=== PATIENT | female | born 1950 | race Caucasian/White ===

== ENCOUNTER → 2017-10-05 | Outpatient (CLI) | payer OTHER, SELFPAY ==
[~2017-10-05] MED LIST: COLACE100 MG PO; NOHOMEMEDICATIONS; PERCOCET 7.5-31 EACH PO; ULTRAM 50MG TAB50 MG PO
== END ==
LOC: M.RAD 12:26
DX: Z12.31 Encounter for screening mammogram for malignant neoplasm of breast (principal)

== ENCOUNTER → 2017-10-08 | Outpatient (CLI) | payer OTHER, SELFPAY | LOC: M.RAD 10-05 15:02 → M.ULTRA 10:21 | DX: Z13.6 Encounter for screening for cardiovascular disorders (principal); N60.01 Solitary cyst of right breast; M85.88 Other specified disorders of bone density and structure, other site; Z78.0 Asymptomatic menopausal state ==

== ENCOUNTER 2017-10-19 09:03 | Inpatient (IN) | payer OTHER, SELFPAY ==
[~2017-10-19] VITALS: Ht 154.9 cm; Wt 80.3 kg
[2017-10-19 09:13] VITALS: BP 120/78
[2017-10-19 09:29] LABS: HEMATOCRIT 54.1 % (37.0-47.0); HEMOGLOBIN 18.1 gm/dL (12.0-15.0); MCH 28.4 pg (26.0-34.0); MCHC 33.4 g/dL (28.0-37.0); MCV 84.9 fL (80.0-100.0); MPV 8.5 fl. (7.2-11.1); NUCLEATED RBCS 0 /100WBC; PLATELET COUNT* 389 thou/uL (150-400); RBC 6.38 mil/uL (4.20-5.00); RDW-CV 14.3 % (10.5-14.5); WBC 23.7 thou/uL (4.0-11.0)
[2017-10-19 09:35] LABS: CALCIUM 10.6 mg/dL (8.5-10.1); POTASSIUM 4.1 mmol/L (3.5-5.1)
[2017-10-19 09:40] LABS: TOTAL BILIRUBIN 0.5 mg/dL (<0.1-1.0); TOTAL PROTEIN 8.5 g/dL (6.4-8.2)
[2017-10-19 09:57] LABS: ABSOLUTE LYMPHOCYTES 4.7 thou/uL (0.8-5.3); ABSOLUTE MONOCYTES 0.9 thou/uL (0.0-1.2)
[2017-10-19 09:58] LABS: PLATELET ESTIMATE ADEQUATE
[2017-10-19 11:02] LABS: APTT 22.6 Seconds (25.0-31.3); PROTIME 9.9 Seconds (9.20-11.50)
[2017-10-19 11:30] LABS: URINE BILIRUBIN NEGATIVE (Negative); URINE BLOOD NEGATIVE (Negative); URINE CLARITY CLEAR; URINE COLOR YELLOW; URINE GLUCOSE-RANDOM NEGATIVE (Negative); URINE KETONES NEGATIVE (Negative); URINE LEUKOCYTES NEGATIVE (Negative); URINE NITRITE NEGATIVE (Negative); URINE PROTEIN TRACE (Negative); URINE SPECIFIC GRAVITY <= 1.005 (1.005-1.030); URINE UROBILINOGEN 0.2 E.U./dl (0.2-1.0)
[2017-10-19 12:10] VITALS: BP 136/72
[2017-10-19 16:00] VITALS: BP 140/62
[2017-10-19 16:30] LABS: URIC ACID* 4.3 mg/dL (2.6-7.2)
--- NOTE | 2017-10-19 18:44 | EKG ---
[place] [address] ELECTROCARDIOGRAM REPORT Name: ANGIE ANDRADE Room: [address] [facility]M [facility]#: [id number] Admission: 10/19/17 Attend Phys: Desiree Brady Discharge: Date of : 52 Report #: [id number] THIS REPORT FOR: //name// [facility] ED Test Date: 2017-10-19 Test Time: 11:01:27 Pat Name: ANGIE ANDRADE Department: Room: [place] [address] Gender: F Java Software: JANNETTE Pearl : 1950 Requested By: Severino Beauchamp Order Number: [id number] MD: Dat Alicea Measurements Intervals Malcolm Rate: 79 P: 9 MT: 145 QRS: -23 QRSD: 96 T: 20 QT: 387 QTc: 444 Interpretive Statements Sinus rhythm Borderline left axis deviation RSR' in V1 or V2, right VCD or RVH No previous ECG available for comparison Electronically Signed On 10-19-2017 18:44:28 CDT by Dat Alicea [email or web address] <ELECTRONICALLY SIGNED> By: Dat Alicea MD, FACC 10/19/17 1844 1101 1101 Dat Alicea MD, [facility] /EPI
[2017-10-19 20:00] VITALS: BP 142/70
[2017-10-20 04:05] LABS: ABSOLUTE EOSINOPHILS 0.1 thou/uL (0.0-0.7); ABSOLUTE LYMPHOCYTES 1.9 thou/uL (0.8-5.3); ABSOLUTE MONOCYTES 1.1 thou/uL (0.0-1.2); ABSOLUTE NEUTROPHILS 7.3 thou/uL (1.6-8.1); BASOPHILS 0.4 %; EOSINOPHILS 1.1 %; LYMPHOCYTES 18.2 %; MCH 28.1 pg (26.0-34.0); MCHC 32.9 g/dL (28.0-37.0); MCV 85.3 fL (80.0-100.0); MONOCYTES 10.2 %; MPV 8.5 fl. (7.2-11.1); NUCLEATED RBCS 0 /100WBC; POLYS 70.1 %; RBC 5.27 mil/uL (4.20-5.00); RDW-CV 14.3 % (10.5-14.5); WBC 10.3 thou/uL (4.0-11.0)
[2017-10-20 04:34] LABS: CALCIUM 8.8 mg/dL (8.5-10.1); CREATININE 0.7 mg/dL (0.6-1.3); HEMOGLOBIN 14.8 gm/dL (12.0-15.0); MAGNESIUM 2.1 mg/dL (1.8-2.4); PHOSPHORUS* 3.6 mg/dL (2.5-4.9); PLATELET COUNT* 289 thou/uL (150-400); POTASSIUM 4.8 mmol/L (3.5-5.1)
[2017-10-20 08:15] VITALS: BP 135/66
[2017-10-20 15:48] VITALS: BP 133/63
--- NOTE | 2017-10-20 17:18 | 2DMMODE ---
[place] [address] 2 D/M-MODE ECHOCARDIOGRAM Name: ANGIE ANDRADE Room: [address] IN [facility]#: [id number] Admission: 10/19/17 Attend Phys: Danita Erickson Discharge: Date of : 52 Date of Service: 10/20/17 1718 Report #: [id number] THIS REPORT FOR: //name// APPROVED REPORT Study performed: 10/20/2017 13:13:57 EXAM: Comprehensive 2D, Doppler, and color-flow Echocardiogram Patient Location: In-Patient Room #: [facility] Status: routine BSA: 1.79 HR: 61 bpm BP: 135/66 mmHg Rhythm: NSR Other Information Study Quality: Good Indications Pre-Op 2D Dimensions LVEF(%): 79.15 (>50%) IVSd: 10.85 (7-11mm) LVOT Diam: 19.14 (18-24mm) LVDd: 36.91 mm PWd: 9.10 (7-11mm) Ascending Ao: 35.36 (22-36mm) LVDs: 19.57 (25-40mm) Aortic Root: 33.83 mm Foy's LVEF: 79.15 % Volumes Left Atrial Volume (Systole) LA ESV Index: 20.10 mL/m2 Aortic Valve AoV Peak Toy.: 1.27 m/s AO Peak Gr.: 6.46 mmHg LVOT Max P.24 mmHg AO Mean Gr.: 3.33 mmHg LVOT Mean P.74 mmHg LVOT Max V: 1.25 m/s AO V2 VTI: 25.48 cm LVOT Mean V: 0.74 m/s ALTAGRACIA (VTI): 3.57 cm2 LVOT V1 VTI: 31.62 cm Mitral Valve E/A Ratio: 1.12 [place] [address] 2 D/M-MODE ECHOCARDIOGRAM Name: ANGIE ANDRADE Room: [address] IN .R.#: [id number] Admission: 10/19/17 Attend Phys: Danita Erickson Discharge: Date of : 52 Date of Service: 10/20/17 1718 Report #: [id number] MV Decel. Time: 194.76 ms MV E Max Toy.: 1.05 m/s MV PHT: 56.48 ms MVA (PHT): 3.90 cm2 TDI E/Lateral E': 8.75 E/Medial E': 10.50 Medial E' Toy.: 0.10 m/s Lateral E' Toy.: 0.12 m/s Pulmonary Valve PV Peak Toy.: 0.85 m/s PV Peak Gr.: 2.91 mmHg Tricuspid Valve TR Peak Gr.: 18.51 mmHg RVSP: 23.00 mmHg Left Ventricle The left ventricle is normal size. There is normal LV segmental wall motion. Mild to moderate concentric left ventricular hypertrophy. Left ventricular systolic function is normal. The left ventricular ejection fraction is within the normal range. LVEF is 60-65%. Grade II - pseudonormal filling dynamics. Right Ventricle The right ventricle is normal size. The right ventricular systolic function is normal. Atria The left atrium size is normal. The right atrium size is normal. Aortic Valve The aortic valve is normal in structure. No aortic regurgitation is present. There is no aortic valvular stenosis. Mitral Valve The mitral valve is normal in structure. There is no mitral valve regurgitation noted. No evidence of mitral valve stenosis. Tricuspid Valve The tricuspid valve is normal in structure. Trace tricuspid regurgitation. The RVSP is ____23___ mmHg. Pulmonic Valve The pulmonary valve is normal in structure. There is no pulmonic [place]vular [place] [address] 2 D/M-MODE ECHOCARDIOGRAM Name: ANGIE ANDRADE Room: [address] IN M.R.#: [id number] Admission: 10/19/17 Attend Phys: Danita Erickson Discharge: Date of : 52 Date of Service: 10/20/17 1718 Report #: [id number] Great Vessels The aortic root is normal in size. IVC is normal in size and collapses with >50% inspiration Pericardium There is no pericardial effusion. <Conclusion> LVEF is 60-65%. There is normal LV segmental wall motion. No aortic regurgitation is present. There is no aortic valvular stenosis. There is no mitral valve regurgitation noted. No evidence of mitral valve stenosis. Mild to moderate concentric left ventricular hypertrophy. Grade II - pseudonormal filling dynamics. <ELECTRONICALLY SIGNED> By: Tico España MD, FACC 10/20/171717 17 17 Tico España MD, FACC /INF
[2017-10-21 00:10] VITALS: BP 147/70
[2017-10-21 07:44] VITALS: BP 136/72
[2017-10-21 15:59] VITALS: BP 133/74
[2017-10-21 20:05] VITALS: BP 138/95
[2017-10-22 08:00] VITALS: BP 128/76
[2017-10-22 08:05] LABS: ABSOLUTE BASOPHILS 0.1 thou/uL (0.0-0.2); ABSOLUTE LYMPHOCYTES 1.6 thou/uL (0.8-5.3); ABSOLUTE MONOCYTES 0.7 thou/uL (0.0-1.2); ABSOLUTE NEUTROPHILS 8.1 thou/uL (1.6-8.1); BASOPHILS 0.6 %; EOSINOPHILS 0.4 %; HEMATOCRIT 41.8 % (37.0-47.0); MCH 28.3 pg (26.0-34.0); MCHC 33.4 g/dL (28.0-37.0); MCV 84.7 fL (80.0-100.0); MONOCYTES 6.3 %; MPV 8.6 fl. (7.2-11.1); NUCLEATED RBCS 0 /100WBC; PLATELET COUNT* 235 thou/uL (150-400); POLYS 77.7 %; RBC 4.93 mil/uL (4.20-5.00); RDW-CV 13.4 % (10.5-14.5); WBC 10.4 thou/uL (4.0-11.0)
[2017-10-22 08:20] LABS: CALCIUM 8.6 mg/dL (8.5-10.1); CREATININE 0.5 mg/dL (0.6-1.3); MAGNESIUM 1.9 mg/dL (1.8-2.4); POTASSIUM 3.5 mmol/L (3.5-5.1)
[2017-10-22 11:59] VITALS: BP 128/76
[2017-10-22 12:23] VITALS: BP 141/81
--- NOTE | 2017-10-22 17:18 | OP ---
[address] [address] OPERATIVE REPORT Name: ANGIE ANDRADE Room: [address] IN M.R.#: [id number] Admission: 10/19/17 Attend Phys: Desiree Brady Discharge: Date of : 52 Report #: [id number] THIS REPORT FOR: //name// CC: Danita Saab DO DICTATED BY: Twila Garcia DO DATE OF SERVICE: 10/22/2017 PREOPERATIVE DIAGNOSIS: Small-bowel obstruction secondary mass. POSTOPERATIVE DIAGNOSIS: Ileocolic mass and small bowel mass, pending final pathology. SURGEON: Twila Garcia DO, PGY5. SUPERVISING SURGEON: Blade Hamilton DO GAMES MANAGER: Pato Ignacio, PGY1 and MAURO Longo student. PROCEDURE: Laparoscopy converted to exploratory laparotomy, right hemicolectomy with ileocolic anastomosis and small bowel resection, partial omentectomy. ANESTHESIA: General endotracheal. ESTIMATED BLOOD LOSS: 50 mL. SPECIMENS: Right colon, small bowel and omentum. COMPLICATIONS: None. DISPOSITION: PACU to med/surg. OPERATIVE DETAILS: After obtaining proper informed consent, the patient was brought to the operating room and laid supine on the operating table. She was given preoperative antibiotics and sedated and intubated under the benefit of general anesthesia. Abdomen was then prepped and draped in the usual sterile fashion and timeout was performed. Supraumbilical incision was made and dissection of subcutaneous tissue was carried out to the level of the fascia and again incision was made in the fascia. This was grasped with 2 Steve clamps and elevated. Fascial incision was extended slightly inferiorly and superiorly and peritoneum was entered bluntly with a hemostat. Finger was placed in abdomen and peritoneum was swept and found to be free of adhesions. A Vygybh-fi-pezzl 0 Vicryl retention sutures were placed [place] [address] OPERATIVE REPORT Name: ANGIE ANDRADE Room: [address] IN ..#: [id number] Admission: 10/19/17 Attend Phys: Desiree Brady Discharge: Date of : 52 Report #: [id number] placed in the abdomen and abdomen was insufflated. Camera was placed in the abdomen and 4 quadrant inspection did not reveal any abnormalities of the peritoneum or gross abnormalities of the liver. We were able to identify mass in the right lateral abdomen. A 5 mm trocar was placed in the left lower quadrant as well as the suprapubic position under direct visualization. Mass was identified in the right lateral abdomen, appeared to be in the terminal ileum. Small bowel was then run proximally. There was a small mesenteric mass in the proximal ileum with some adjacent serosal plaquing also in the proximal ileum, but remainder of small bowel was grossly unremarkable. We then turned our attention back to the mass in the right lower quadrant and this appeared to be terminal ileum and proximal cecum. White line of Toldt was then taken down and retracted medially. There were some omental adhesions; however, because the mass was quite large and difficult to retract, we elected to convert to laparotomy. Supraumbilical incision was extended superiorly as well as around the umbilicus and fascial incision was extended along the length of the incision. We then turned our attention to the transverse colon. There was some adherent omentum, but this was taken down. We then proceeded to take down the hepatic flexure moving around, taking care to avoid the duodenum. Once the hepatic flexure was completely taken down and we were able to fully retract the colon up on its mesentery into the midline incision, we then made our resection margins. An 80 mm blue load TERRY stapler was used to ligate the transverse colon. Mesentery was serially clamped and ligated and moving back towards the cecum, there were some lymph nodes deep in the mesentery and these were ligated. Ileocolic pedicle posteriorly clamped and ligated with the LigaSure device and reinforced with 2-0 silk sutures. Terminal ileum was then divided with an 80 mm TERRY stapler and specimen was sent to pathologist for frozen sections intraoperatively. We then made a iapm-xm-jszt ileocolic anastomosis with an 80 mm blue load TERRY stapler to make the common channel and a 60 TA stapler to close the common enterotomy. Lembert stitches were placed to reinforce our staple line and mesentery was reapproximated with 2-0 Vicryl sutures. We then proceeded proximally on the small bowel where there was the antimesenteric mass in the adjacent serosal plaquing, a short segment. Approximately 15 cm of small bowel was then resected with 55 mm blue load TERRY staplers proximal and distal end. Again mesentery serially clamped and ligated with the LigaSure device. Untj-dd-oyvo anastomosis was created with 60 mm TERRY blue load stapler and common enterotomy was closed with 60 TA stapler. The mesentery again was closed with 2-0 Vicryl and 2-0 Vicryl was used to Lembert stitch to support the staple line. The bowel was then placed back in the abdomen and abdomen was copiously irrigated with warm saline. Fascia was then reapproximated with #1 PDS suture and subcutaneous tissues were reapproximated with 3-0 Vicryl and skin was closed with skin stapler, followed by Telfa dressing and sterile gauze dressings. All counts were correct at the end of the case. Intraoperative consultation with pathology with mass highly suspicious for lymphoma. [place] [address] OPERATIVE REPORT Name: ANGIE ANDRADE Room: [address] IN [facility]#: [id number] Admission: 10/19/17 Attend Phys: Desiree Brady Discharge: Date of : 52 Report #: [id number] Blade Hamilton was present and scrubbed for the entire procedure. <ELECTRONICALLY SIGNED> By: Blade Hamilton DO 10/22/17 1718 1549 1648Amicheal Hamilton DO /nt
[2017-10-22 18:39] VITALS: BP 129/65
[2017-10-22 20:00] VITALS: BP 128/64
[2017-10-23] VITALS: BP 116/59
[2017-10-23 04:00] VITALS: BP 109/53
[2017-10-23 04:57] LABS: HEMATOCRIT 38.4 % (37.0-47.0); HEMOGLOBIN 12.7 gm/dL (12.0-15.0); MCH 28.1 pg (26.0-34.0); MCHC 33.1 g/dL (28.0-37.0); MCV 84.9 fL (80.0-100.0); MPV 8.3 fl. (7.2-11.1); NUCLEATED RBCS 0 /100WBC; PLATELET COUNT* 248 thou/uL (150-400); RBC 4.53 mil/uL (4.20-5.00); RDW-CV 13.7 % (10.5-14.5)
[2017-10-23 05:08] LABS: CREATININE 0.5 mg/dL (0.6-1.3)
[2017-10-23 06:52] LABS: ABSOLUTE LYMPHOCYTES 1.3 thou/uL (0.8-5.3); ABSOLUTE MONOCYTES 1.1 thou/uL (0.0-1.2); ABSOLUTE NEUTROPHILS 13.6 thou/uL (1.6-8.1); ANISOCYTOSIS 1+; PLATELET ESTIMATE ADEQUATE; POIKILOCYTOSIS 1+
[2017-10-23 07:30] VITALS: BP 122/65
[2017-10-23 16:00] VITALS: BP 122/68
[2017-10-23 21:00] VITALS: BP 144/63
[2017-10-24] VITALS: BP 133/76
[2017-10-24 03:58] LABS: ABSOLUTE EOSINOPHILS 0.2 thou/uL (0.0-0.7); ABSOLUTE LYMPHOCYTES 1.1 thou/uL (0.8-5.3); ABSOLUTE MONOCYTES 0.9 thou/uL (0.0-1.2); ABSOLUTE NEUTROPHILS 9.4 thou/uL (1.6-8.1); BASOPHILS 0.3 %; EOSINOPHILS 1.9 %; HEMATOCRIT 38.5 % (37.0-47.0); LYMPHOCYTES 9.2 %; MCH 28.6 pg (26.0-34.0); MCHC 33.8 g/dL (28.0-37.0); MCV 84.6 fL (80.0-100.0); MONOCYTES 8.1 %; MPV 8.5 fl. (7.2-11.1); NUCLEATED RBCS 0 /100WBC; PLATELET COUNT* 238 thou/uL (150-400); POLYS 80.5 %; RBC 4.55 mil/uL (4.20-5.00); RDW-CV 13.6 % (10.5-14.5); WBC 11.7 thou/uL (4.0-11.0)
[2017-10-24 04:21] LABS: MAGNESIUM 1.7 mg/dL (1.8-2.4); PHOSPHORUS* 2.3 mg/dL (2.5-4.9)
[2017-10-24 04:48] LABS: ALBUMIN 2.7 g/dL (3.4-5.0); CALCIUM 8.5 mg/dL (8.5-10.1); CREATININE 0.5 mg/dL (0.6-1.3); POTASSIUM 3.4 mmol/L (3.5-5.1); TOTAL BILIRUBIN 0.5 mg/dL (<0.1-1.0); TOTAL PROTEIN 6.3 g/dL (6.4-8.2)
[2017-10-24 05:59] VITALS: BP 143/70
[2017-10-24 07:45] VITALS: BP 137/73
[2017-10-24 16:00] VITALS: BP 144/84
[2017-10-24 17:54] LABS: CALCIUM 8.4 mg/dL (8.5-10.1); CREATININE 0.5 mg/dL (0.6-1.3); MAGNESIUM 1.8 mg/dL (1.8-2.4)
[2017-10-24 17:56] LABS: POTASSIUM 2.9 mmol/L (3.5-5.1)
[2017-10-24 20:30] VITALS: BP 136/65
[2017-10-25 00:51] VITALS: BP 118/58
[2017-10-25 04:29] VITALS: BP 141/61
[2017-10-25 05:31] LABS: HEMATOCRIT 38.2 % (37.0-47.0); HEMOGLOBIN 12.9 gm/dL (12.0-15.0); MCH 28.6 pg (26.0-34.0); MCHC 33.8 g/dL (28.0-37.0); MCV 84.5 fL (80.0-100.0); MPV 8.7 fl. (7.2-11.1); RBC 4.52 mil/uL (4.20-5.00); RDW-CV 13.8 % (10.5-14.5); WBC 9.4 thou/uL (4.0-11.0)
[2017-10-25 05:53] LABS: CALCIUM 8.9 mg/dL (8.5-10.1); CREATININE 0.5 mg/dL (0.6-1.3); POTASSIUM 3.8 mmol/L (3.5-5.1)
[2017-10-25 08:00] VITALS: BP 138/70
[2017-10-25 16:00] VITALS: BP 132/74
[2017-10-25 20:00] VITALS: BP 147/63
[2017-10-25 23:53] VITALS: BP 136/81
[2017-10-26 04:20] VITALS: BP 125/77
[2017-10-26 06:07] LABS: ABSOLUTE EOSINOPHILS 0.4 thou/uL (0.0-0.7); ABSOLUTE LYMPHOCYTES 0.8 thou/uL (0.8-5.3); ABSOLUTE MONOCYTES 1.3 thou/uL (0.0-1.2); BASOPHILS 0.5 %; EOSINOPHILS 4.7 %; HEMATOCRIT 40.1 % (37.0-47.0); HEMOGLOBIN 13.6 gm/dL (12.0-15.0); LYMPHOCYTES 11.2 %; MCH 28.6 pg (26.0-34.0); MCV 84.2 fL (80.0-100.0); NUCLEATED RBCS 0 /100WBC; PLATELET COUNT* 292 thou/uL (150-400); POLYS 66.6 %; RBC 4.76 mil/uL (4.20-5.00); RDW-CV 14.2 % (10.5-14.5); WBC 7.5 thou/uL (4.0-11.0)
[2017-10-26 06:15] LABS: CALCIUM 9.4 mg/dL (8.5-10.1); CREATININE 0.6 mg/dL (0.6-1.3); PHOSPHORUS* 3.6 mg/dL (2.5-4.9); POTASSIUM 4.6 mmol/L (3.5-5.1)
[2017-10-26 08:30] VITALS: BP 139/76
[2017-10-26 16:27] VITALS: BP 127/68
[2017-10-26 20:00] VITALS: BP 124/79
[2017-10-27 04:34] LABS: ABSOLUTE BASOPHILS 0.1 thou/uL (0.0-0.2); ABSOLUTE EOSINOPHILS 0.4 thou/uL (0.0-0.7); ABSOLUTE LYMPHOCYTES 1.3 thou/uL (0.8-5.3); ABSOLUTE MONOCYTES 1.2 thou/uL (0.0-1.2); ABSOLUTE NEUTROPHILS 5.7 thou/uL (1.6-8.1); BASOPHILS 0.7 %; EOSINOPHILS 4.3 %; HEMATOCRIT 37.1 % (37.0-47.0); HEMOGLOBIN 12.4 gm/dL (12.0-15.0); LYMPHOCYTES 14.6 %; MCH 28.3 pg (26.0-34.0); MCHC 33.4 g/dL (28.0-37.0); MCV 84.8 fL (80.0-100.0); MONOCYTES 14.5 %; NUCLEATED RBCS 0 /100WBC; PLATELET COUNT* 277 thou/uL (150-400); POLYS 65.9 %; RBC 4.37 mil/uL (4.20-5.00); RDW-CV 14.3 % (10.5-14.5); WBC 8.6 thou/uL (4.0-11.0)
[2017-10-27 04:51] LABS: CALCIUM 9.1 mg/dL (8.5-10.1); CREATININE 0.6 mg/dL (0.6-1.3); PHOSPHORUS* 3.9 mg/dL (2.5-4.9); POTASSIUM 3.9 mmol/L (3.5-5.1)
[2017-10-27 08:29] VITALS: BP 193/52
[2017-10-27 16:02] VITALS: BP 154/87
[2017-10-27 20:00] VITALS: BP 148/81
[2017-10-28 07:46] LABS: ABSOLUTE EOSINOPHILS 0.4 thou/uL (0.0-0.7); ABSOLUTE LYMPHOCYTES 1.3 thou/uL (0.8-5.3); ABSOLUTE MONOCYTES 1.2 thou/uL (0.0-1.2); ABSOLUTE NEUTROPHILS 5.3 thou/uL (1.6-8.1); BASOPHILS 0.6 %; EOSINOPHILS 5.4 %; HEMATOCRIT 35.2 % (37.0-47.0); HEMOGLOBIN 11.9 gm/dL (12.0-15.0); LYMPHOCYTES 15.9 %; MCH 28.5 pg (26.0-34.0); MCHC 33.8 g/dL (28.0-37.0); MCV 84.5 fL (80.0-100.0); MPV 8.3 fl. (7.2-11.1); NUCLEATED RBCS 0 /100WBC; PLATELET COUNT* 287 thou/uL (150-400); POLYS 64.1 %; RBC 4.17 mil/uL (4.20-5.00); RDW-CV 14.2 % (10.5-14.5); WBC 8.2 thou/uL (4.0-11.0)
[2017-10-28 08:00] VITALS: BP 144/85
[2017-10-28 08:09] LABS: CALCIUM 8.4 mg/dL (8.5-10.1); CREATININE 0.5 mg/dL (0.6-1.3); MAGNESIUM 2.1 mg/dL (1.8-2.4); PHOSPHORUS* 3.6 mg/dL (2.5-4.9); POTASSIUM 3.7 mmol/L (3.5-5.1)
[2017-10-28 17:20] VITALS: BP 151/60
[2017-10-29 04:16] VITALS: BP 148/80
[2017-10-29 07:30] VITALS: BP 146/77
[2017-10-29 15:49] VITALS: BP 144/73
[2017-10-29 20:00] VITALS: BP 150/73
[2017-10-30 00:06] VITALS: BP 138/60
[2017-10-30 04:10] VITALS: BP 144/86
[2017-10-30 05:58] LABS: ABSOLUTE BASOPHILS 0.1 thou/uL (0.0-0.2); ABSOLUTE EOSINOPHILS 0.3 thou/uL (0.0-0.7); ABSOLUTE LYMPHOCYTES 1.2 thou/uL (0.8-5.3); ABSOLUTE MONOCYTES 0.8 thou/uL (0.0-1.2); ABSOLUTE NEUTROPHILS 6.1 thou/uL (1.6-8.1); BASOPHILS 0.7 %; HEMATOCRIT 33.6 % (37.0-47.0); HEMOGLOBIN 11.3 gm/dL (12.0-15.0); LYMPHOCYTES 13.7 %; MCH 28.4 pg (26.0-34.0); MCHC 33.7 g/dL (28.0-37.0); MCV 84.1 fL (80.0-100.0); MONOCYTES 9.5 %; MPV 7.8 fl. (7.2-11.1); NUCLEATED RBCS 0 /100WBC; PLATELET COUNT* 277 thou/uL (150-400); POLYS 72.1 %; RBC 3.99 mil/uL (4.20-5.00); RDW-CV 13.5 % (10.5-14.5); WBC 8.4 thou/uL (4.0-11.0)
[2017-10-30 06:10] LABS: CALCIUM 8.3 mg/dL (8.5-10.1); CREATININE 0.4 mg/dL (0.6-1.3); MAGNESIUM 1.8 mg/dL (1.8-2.4); PHOSPHORUS* 3.6 mg/dL (2.5-4.9); POTASSIUM 3.1 mmol/L (3.5-5.1)
[2017-10-30 07:45] VITALS: BP 141/76
[2017-10-30 15:52] VITALS: BP 140/75
[2017-10-30 20:30] VITALS: BP 143/86
[2017-10-31 00:18] VITALS: BP 141/77
[2017-10-31 09:52] VITALS: BP 108/66
[2017-10-31 16:03] VITALS: BP 111/69
[2017-10-31 16:28] VITALS: BP 111/69
[2017-10-31] MEDS ORDERED: COLACE100 MG PO (16:42)
[2017-10-31] MEDS ORDERED: PERCOCET 7.5-31 EACH PO (16:43)
[2017-11-13] MEDS ORDERED: ULTRAM 50MG TAB50 MG PO (15:13)
[2017-11-18] MEDS ORDERED: NOHOMEMEDICATIONS (13:17)
== END 2017-10-31 17:41 | disposition home or self-care (01) | DRG 330 ==
LOC: M.ERS 09:03 → M.TBA-ER 10:46 → M.ORTHSURG 10:46
PROVIDERS: Family Medicine; Surgery; ADMIT Internal Medicine
DX: K56.609 Unspecified intestinal obstruction, unspecified as to partial versus complete obstruction (principal); R65.10 Systemic inflammatory response syndrome (SIRS) of non-infectious origin without acute organ dysfunction; E44.0 Moderate protein-calorie malnutrition; E87.2 Acidosis; C82.90 Follicular lymphoma, unspecified, unspecified site; F17.210 Nicotine dependence, cigarettes, uncomplicated; E87.6 Hypokalemia; K56.7 Ileus, unspecified; Z90.49 Acquired absence of other specified parts of digestive tract; Z88.6 Allergy status to analgesic agent; Z68.33 Body mass index [BMI] 33.0-33.9, adult; Z91.040 Latex allergy status

== ENCOUNTER → 2017-11-13 | Day surgery (SDC) | payer OTHER, SELFPAY ==
[2017-11-13 11:06] LABS: HEMATOCRIT 38.9 % (37.0-47.0); HEMOGLOBIN 12.9 gm/dL (12.0-15.0); MCH 27.9 pg (26.0-34.0); MCHC 33.1 g/dL (28.0-37.0); MCV 84.2 fL (80.0-100.0); MPV 8.1 fl. (7.2-11.1); PLATELET COUNT* 399 thou/uL (150-400); RBC 4.62 mil/uL (4.20-5.00); RDW-CV 14.1 % (10.5-14.5); WBC 8.2 thou/uL (4.0-11.0)
[2017-11-13 11:13] LABS: PROTIME 9.9 Seconds (9.20-11.50)
[2017-11-13 12:00] LABS: NUCLEATED RBCS 0 /100WBC
[2017-11-13 12:47] LABS: ABSOLUTE BASOPHILS 0.3 thou/uL (0.0-0.2); ABSOLUTE EOSINOPHILS 0.2 thou/uL (0.0-0.7); ABSOLUTE LYMPHOCYTES 2.4 thou/uL (0.8-5.3); ABSOLUTE MONOCYTES 0.4 thou/uL (0.0-1.2); ABSOLUTE NEUTROPHILS 4.9 thou/uL (1.6-8.1); ATYPICAL LYMPHS 2 %; PLATELET ESTIMATE ADEQUATE
--- NOTE | 2017-11-19 11:21 | OP ---
[address] [address] OPERATIVE REPORT Name: ANGIE ANDRADE Room: [facility]#: [id number] Admission: 11/13/17 Attend Phys: Alejandro Villasenor MD Discharge: Date of : 52 Report #: [id number] THIS REPORT FOR: //name// CC: Blade Saab DATE OF SERVICE: 11/13/2017 Dr. Jonathan Sands dictating for Dr. Blade Hamilton. PREOPERATIVE DIAGNOSIS: Lymphoma. POSTOPERATIVE DIAGNOSIS: Lymphoma. SURGEON: Blade Hamilton DO SECURITY EXPERT: Jonathan Sands DO, PGY-2 and Deanne Cruz DO, PGY-1. OPERATION PERFORMED: Fluoroscopy guided left subclavian chemo port placement. ANESTHESIA TYPE: General LMA. ESTIMATED BLOOD LOSS: 10 mL. SPECIMENS REMOVED: None. COMPLICATIONS: None. INDICATIONS FOR PROCEDURE: The patient is a pleasant 67-year-old female who presented to the clinic for evaluation for chemo port placement due to diagnosis of lymphoma. The patient has had previously a right hemicolectomy with ileocolonic anastomosis. OPERATION TECHNIQUE: The patient was seen in the preop holding area, proper written consent was obtained. Full discussion of procedure, alternatives, risks and possible complications include but not limited to bleeding, infection, postoperative pain, scarring, port infection, need for port removal, blood clot/DVT and need for prolonged anticoagulation as well as anesthesia risks. The patient voiced understanding of these risks and agreed to proceed to the operating room. Preop antibiotics were given. The patient was taken to the OR, transferred to the OR table, placed in supine position. At this time, anesthesia induced general LMA anesthesia. Bilateral SCDs were placed to the lower extremities calves. A grounding pad was placed to the lateral thigh. The patient was then prepped and draped using standard sterile fashion[place] [address] OPERATIVE REPORT Name: ANGIE ANDRADE Room: [facility]#: [id number] Admission: 11/13/17 Attend Phys: Alejandro Villasenor MD Discharge: Date of : 52 Report #: [id number] performed prior to procedure. The left subclavian vein was punctured with a single stick and a Guidewire threaded through the needle into the superior vena cava under fluoroscopic guidance. The needle was removed. Incision was made over the guidewire and extended to the lateral chest for port pocket with approximately 3 cm incision. Dissection was carried down through the subcutaneous tissue using electrocautery until pectoralis fascia was encountered. Blunt dissection was carried out circumferentially inferiorly and posterior to the incision to make pocket for port placement. Dilator with sheath was then threaded over the guidewire. This was performed under fluoroscopic guidance. Dilator and wire were removed. Paoj-Y-Txjduvki was inserted through the sheath and this was cracked at the hub. Catheter was advanced as the sheath was removed. Fluoroscopic evaluation was again noted as catheter tip in the proximal superior vena cava. Catheter reservoir tubing was attached to the reservoir in the routine fashion. [place] was placed in the pocket and sutured to the anterior chest pectoralis fascia with 3 interrupted 3-0 Prolene sutures for stability. Next using a Chen needle, the port was accessed, aspirated, blood was seen returning in its syringe and flushed with 10 mL of normal saline. Catheter was then flushed with heparinized saline. C-arm was then readvanced for final evaluation. . Catheter noted to cross midline and tip was noted in the proximal superior vena cava just superior to the right atrium. There were no kinks noted in the catheter. C-arm removed and subcutaneous tissue was closed using 3-0 interrupted Vicryl sutures. Skin was closed using 4-0 running Monocryl. The area was cleaned with saline and dried. Mastisol, Steri-Strips, Tegaderm, 4 x 4s, Medipore tape was placed for dressing. The patient was extubated in the OR, transferred to the PACU in stable condition where a stat portable AP chest x-ray was performed, again noting catheter in excellent position as well as no pneumothorax and trachea was midline. PLAN: The patient to discharge home. Follow up with Dr. Hamilton in 1 week. <ELECTRONICALLY SIGNED> By: Kenn Sands DO 11/19/17 1121 1627 1702Kenn Sands DO /nt
== END | disposition home or self-care (01) ==
LOC: M.SUR 08:33
PROVIDERS: Radiology Diagnostic Radiology
DX: Z45.2 Encounter for adjustment and management of vascular access device (principal); C85.90 Non-Hodgkin lymphoma, unspecified, unspecified site; Z98.0 Intestinal bypass and anastomosis status; Z91.040 Latex allergy status; Z88.8 Allergy status to other drugs, medicaments and biological substances; Z79.899 Other long term (current) drug therapy; Z87.891 Personal history of nicotine dependence; Z79.01 Long term (current) use of anticoagulants

== ENCOUNTER → 2017-11-19 | Outpatient (CLI) | payer OTHER, SELFPAY ==
[~2017-11-19] VITALS: Ht 154.9 cm; Wt 78.9 kg
[2017-11-19 08:33] LABS: MCH 28.1 pg (26.0-34.0); MCHC 33.3 g/dL (28.0-37.0); MCV 84.4 fL (80.0-100.0); NUCLEATED RBCS 0 /100WBC; PLATELET COUNT* 275 thou/uL (150-400); RBC 4.63 mil/uL (4.20-5.00); RDW-CV 14.4 % (10.5-14.5); WBC 9.9 thou/uL (4.0-11.0)
[2017-11-19 08:35] VITALS: BP 143/98
[2017-11-19 08:43] LABS: APTT 29.2 Seconds (25.0-31.3); PROTIME 10.2 Seconds (9.20-11.50)
[2017-11-19 08:47] LABS: CALCIUM 8.7 mg/dL (8.5-10.1); CREATININE 0.7 mg/dL (0.6-1.3); POTASSIUM 3.8 mmol/L (3.5-5.1)
[2017-11-19 08:51] LABS: ALBUMIN 3.1 g/dL (3.4-5.0); TOTAL BILIRUBIN 0.4 mg/dL (<0.1-1.0); TOTAL PROTEIN 6.3 g/dL (6.4-8.2)
[2017-11-19 09:02] LABS: ABSOLUTE EOSINOPHILS 0.9 thou/uL (0.0-0.7); ABSOLUTE MONOCYTES 0.4 thou/uL (0.0-1.2); ABSOLUTE NEUTROPHILS 6.6 thou/uL (1.6-8.1); ATYPICAL LYMPHS 2 %; METAMYELOCYTES 2 %; PLATELET ESTIMATE ADEQUATE
[2017-11-19 10:15] VITALS: BP 139/74
[2017-11-19 10:18] VITALS: BP 151/96
[2017-11-19 10:46] VITALS: BP 153/88
--- NOTE | 2017-12-10 07:54 | PATH ---
[address] [address] PATHOLOGY RPT PROCEDURE Name: ANGIE ANDRADE Room: [facility] [place]#: [id number] Admission: 11/19/17 Date of : 52 Discharge: Report #: [id number] Path Case #: [id number] [facility] Accession Number: [id number] . 01 Material submitted: . PART A: BONE MARROW BIOPSY CORE PART B: BONE MARROW CLOT/PARTCL PREP PART C: BONE MARROW ASPIRATE PART D: PERIPHERAL SMEAR . 01 Clinician provided ICD-10: C82.90 . 01 Clinical history: . Follicular lymphoma . 02 Diagnosis: Peripheral smear: - No significant pathologic abnormalities. . Bone marrow, aspirate smears, touch imprints, clot section, and core biopsy: - Mildly hypercellular marrow showing trilineage hematopoiesis, no significant dyspoiesis, and focal paratrabecular involvement by B cell lymphoma having immunophenotypic features of follicular lymphoma. - Absent iron stores. LBQ/11/26/2017 . 02 Comment: The peripheral smear shows no significant pathologic abnormalities. The bone marrow is mildly hypercellular and shows trilineage hematopoiesis, no significant dyspoiesis, and focal paratrabecular involvement by B cell lymphoma having morphologic and immunophenotypic features of follicular lymphoma. The lymphomatous infiltrate comprises no more than 10-20% of nucleated marrow cells. (JPM/db; 11/26/17) . Special stain performed: Iron stain on the aspirate smear and on B1 and reticulin stain on A1 and immunoperoxidase stains for CD20, CD3, CD5, CD10, BCL2, BCL6 and cyclin D1 on A1. . 02 Electronically signed: . Alejandro Ann MD, Pathologist NPI- [id number] . 01 Gross description: . A. Received in formalin labeled "Angie Andrade core," is a single needle core of sutherland bone measuring 0.8 cm in length and 0.2 [place] [address] PATHOLOGY RPT PROCEDURE Name: ANGIE ANDRADE Room: [facility]#: [id number] Admission: 11/19/17 Date of : 52 Discharge: Report #: [id number] Path Case #: [id number] The specimen is entirely submitted in cassette A1, following decalcification . B. Received in formalin labeled ", Angie, clot," is an aggregate of dark sutherland blood clot measuring 2.6 x 1.1 x 1.0 cm in aggregate dimensions. The specimen is submitted entirely in cassette B1 through B3. (TSD; 11/19/2017) TOB/TOB . 02 Microscopic: . Laboratory Data: The WBC count is 9.9 K/CMM, and the WBC differential reveals 65% segmented neutrophils, 18% lymphocytes, 4.0% monos, 9.0% eos, 2% metamyelocytes, and 2% atypical lymphs. The RBC count is 4.63 M/CMM, hemoglobin 13.0 G/DL, hematocrit 39.0%, MCV 84.4 FL, MCH 28.1 PG, MCHC 33.3 G/DL, and the RDW is 14.4%. The platelet count is 275 K/CMM. . Peripheral Smear: The peripheral smear is reviewed. The WBC count is upper normal. The WBC differential reveals a predominance of segmented neutrophils with smaller populations of lymphocytes, eosinophils, and monocytes noted. There are occasional circulating metamyelocytes and myelocytes. There is no leukoerythroblastic reaction, however. Neutrophils do not show dysplastic changes. The lymphocyte population consists predominantly of small mature lymphocytes. There are no obvious circulating lymphoma cells. Red blood cells appear normochromic and normocytic and show no significant anisopoikilocytosis. Platelets appear normal in number and morphology. . Aspirate Smears: Multiple Karimi's-stained and one iron-stained aspirate smears, and two Karimi's-stained biopsy touch imprints are examined. The smears contain multiple marrow particles. The M/E ratio is within normal range. Erythroid maturation appears normoblastic. There are no megaloblastic or overt dysplastic changes. Granulopoiesis qualitatively appears normal. There is no significant left shift or dysplastic changes. There is no increase of blasts. Megakaryocytes appear adequate in number and are of variable ploidy. There is no increase of plasma cells. Lymphocytes are not increased. There is no atypical lymphoreticular infiltrate. There are no cells foreign to the marrow. The iron stained smear shows absent iron stores. No ringed sideroblasts are identified. The Karimi's-stained touch imprint shows no additional findings. . Bone Marrow Biopsy and Clot Sections: Sections of the bone marrow biopsy show aspiration artifact. Preserved areas of the biopsy range between 50-60% and 80% cellular. The clot sections contain a few particles which are on the order of 50-60% cellular. There is a good admixture of erythroid and granulocytic precursors, which are present in varying stages of maturation. Megakaryocytes appear adequate in number and are of variable ploidy. Sections of the bone marrow biopsy show [place] [address] PATHOLOGY RPT PROCEDURE Name: ANGIE ANDRADE Room: [facility]#: [id number] Admission: 11/19/17 Date of : 52 Discharge: Report #: [id number] Path Case #: [id number] infiltrates which are paratrabecular. The lymphoid infiltrates are comprised of small lymphocytes having rounded to elongate twisted hyperchromatic nuclei. In order to confirm flow cytometric findings and characterize the target cells in a tissue architectural context, a panel of immunohistochemical stains is performed on the biopsy (A1) and yields the following results: . CD20: Atypical lymphoid infiltrate positive with largely paratrabecular localization . CD3: Small population of small lymphocytes positive having an interstitial distribution and forming a subpopulation of lymphocytes within the atypical lymphoid infiltrates. . CD5: Small population of small lymphocytes positive similar to CD3. . CD10: Subpopulation of lymphocytes within atypical lymphoid infiltrates positive . BCL2: Atypical lymphoid infiltrates positive . BCL6: Few cells within atypical lymphoid infiltrates positive . Cyclin D1: Atypical lymphoid infiltrate negative . A reticulin stain obtained on the biopsy shows a patchy mild increase of reticulin fibers. Iron stain of the clot section shows absent iron stores. . Special Studies: Bone marrow submitted for flow cytometry has a viability of 96.3%. Granulocytes comprise 85.5% of total cells and show phenotypic evidence of maturation. Monocytes comprise 2.7% of total cells and show phenotypic evidence of maturation. CD45 dim, CD34 positive cells comprise 0.5% of total cells. Plasma cells are not detected. Lymphocytes comprise 7.9% of total cells. T-cells comprise 68% of lymphoid cells and show a CD4/CD8 ratio of 1.3. NK-cells comprise 5% of lymphoid cells. Mature B-cells comprise 21% of lymphoid cells, are small in size, and are CD19, CD20, CD10, and CD23 (dim) positive and show surface lambda light chain restriction. These B-cells are CD5 and CD11c negative. . (JPM:gamaliel/angel 11/26/2017) . 02 Pathologist provided ICD-10: C82.90 . 02 CPT . [id number], 068609, 623572, [id number], [id number], 765878, 874267, 033414, [id number], [id number] [place] [address] PATHOLOGY RPT PROCEDURE Name: ANGIE ANDRADE Room: [facility] [place]#: [id number] Admission: 11/19/17 Date of : 52 Discharge: Report #: [id number] Path Case #: [id number] Performed at: 01 [facility] Alejandra Alvares [address], [place] [id number] MD Rashad Perez MD Phone: [phone] Performed at: 02 [facility] [address] [place], [place] [id number] MD Alejandro Ann MD Phone: [phone]
== END | disposition home or self-care (01) ==
LOC: M.INT 07:33
PROVIDERS: Radiology Diagnostic Radiology
DX: D70.4 Cyclic neutropenia (principal); Z90.49 Acquired absence of other specified parts of digestive tract; Z98.890 Other specified postprocedural states; Z79.891 Long term (current) use of opiate analgesic; Z91.040 Latex allergy status; Z88.6 Allergy status to analgesic agent; Z79.01 Long term (current) use of anticoagulants; Z83.3 Family history of diabetes mellitus; Z87.891 Personal history of nicotine dependence; Z82.49 Family history of ischemic heart disease and other diseases of the circulatory system; Z82.3 Family history of stroke

== ENCOUNTER → 2018-05-27 | Outpatient (CLI) | payer OTHER, SELFPAY | LOC: M.ULTRA 05-26 10:30 | DX: N83.202 Unspecified ovarian cyst, left side (principal); R10.30 Lower abdominal pain, unspecified ==

== ENCOUNTER → 2018-06-07 | Outpatient (CLI) | payer OTHER, SELFPAY ==
--- NOTE | 2018-06-10 11:08 | PATH ---
[address] [address] PATHOLOGY RPT PROCEDURE Name: ANGIE ANDRADE Room: [facility]#: [id number] Admission: 06/07/18 Date of : 52 Discharge: Report #: [id number] Path Case #: [id number] [facility] Accession Number: [id number] . 01 Material submitted: . RIGHT NECK LYMPH NODE . 01 Clinical history: . 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 02 Diagnosis: Tissue submitted as "right neck lymph node" (inferior to parotid): - Warthin's tumor, negative for malignancy. (CHIQUI/db; 06/09/2018) . . LBQ/06/09/2018 . 02 Electronically signed: . Giovanny Steele MD, Pathologist NPI- [id number] . 01 Gross description: . Received in formalin labeled "Angie Andrade right neck lymph node," are three needle cores of suther[place] soft tissue ranging from 0.4 to 1.2 cm in length and measuring 0.1 cm each in diameter. This tissue is submitted entirely in cassette A1 through A3. . A portion of the specimen is also received in RPMI solution. This tissue is forwarded to an outside laboratory for flow cytometry studies. (DAC; 06/08/2018) XDC/XDC . 02 Microscopic: . Special studies report received from [facility], [address] [place] [address], [address], [place], [address], on case [id number], labeled with their number [id number], dated 06/09/2018. . Flow Cytometry: Hematologic Neoplasia Assessment . Clinical History Follicular lymphoma on Rituxan . Indication for Study [place] [address] PATHOLOGY RPT PROCEDURE Name: ANGIE ANDRADE Room: [facility]#: [id number] Admission: 06/07/18 Date of : 52 Discharge: Report #: [id number] Path Case #: [id number] . Specimen Lymph Node, Right Neck . Viability 24% (7AAD exclusion) . Interpretation Lymph Node, Right Neck: - No evidence of a monotypic B-cell population in a limited sample due to low cell yield and reduced viability (see comment). . Comments However this is a limited sample due to low cell yield and reduced viability therefore only a limited panel of antibodies could be performed and these findings should be interpreted with caution. Most of the events analyzed represented erythroid cells/debris (97%). B-cells are depleted. Correlation with the cytomorphology and clinical findings is recommended. . Populations Analyzed Lymphocytes: 2% B-cells: depleted T-cells: no significant abnormalities of the limited markers tested CD4:CD8: 0.8 Granulocytes: 1% Present CD45 Negative 97% No significant reactivity with the markers tested Events/Debris: (may represent non-hematolymphoid cells, degenerated cells, debris, unlysed red blood cells, etc.) . Morphologic Evaluation A slide was reviewed for quality assurance auditor purposes only. . Specimen Description Due to low cell count, the lab is unable to provide an accurate cell yield. A limited panel of antibodies was performed. Flow cytometry data needs to be interpreted within the context of all clinical, laboratory, and morphologic information. . Pertinent Prior Test Results Received Date Test Type Specimen Type Result 12/19/2016 FISH - Tissue Result Number: TargetGene Panel [id number] Result: Abnormalities detected by BCL2 and IGH/BCL2 FISH Probes: IGH/BCL2 translocation, and [place]CL[place] [address] PATHOLOGY RPT PROCEDURE Name: [facility]GIE [id number] Admission: 06/07/18 Date of : 52 Discharge: Report #: [id number] Path Case #: [id number] 12/19/2016 Flow Cytometry Tissue Result Number: [id number] See Report 11/28/2016 Flow Cytometry Tissue Result Number: [id number] Lymph Node, Right Supraclavicular: - A small monotypic (clonal) B-cell population (2.2% of sample) is detected (see comments) - Limited sample with decreased viability (64%) . Reagent(s) Used CD3, CD4, CD5, CD8, CD10, CD19, CD20, CD38, CD45, CD57, kappa, lambda . at [facility]. Rebecca Izaguirre MD Pathologist . Intended Use Flow cytometry is optimally used to immunophenotypically characterize abnormal populations when they are detected. Negative flow cytometry results do not exclude lymphoma or neoplasia. Possible false negative flow cytometry results may occur in, but are not limited to, the following: neoplastic cells in Hodgkin lymphoma are not typically adequately represented by routine clinical flow cytometry; neoplastic cells may be lost or inadequately represented due to degeneration, sample processing, sampling artifact, or patchy involvement; plasma cells are typically underrepresented by flow cytometry; immature cells/blasts may be underrepresented due to hemodilution; myeloproliferative disorders and low grade myelodysplasia may not have immunophenotypic abnormalities or increased blasts. Correlation with all available clinical, laboratory, and morphologic data is always necessary to assess for the possibility of false negative flow cytometry results and to establish a diagnosis. Each marker in this analysis was used to assess for potential antigenic abnormalities or to evaluate detected abnormalities. . Disclaimer(s) This test was performed at [facility]. at [address] [place] [address], [place], [address] - Back Up Machine Operator: Ren Pack MD. [facility] is a business unit of [facility] a wholly-owned subsidiary of [place] [place] [address] PATHOLOGY RPT PROCEDURE Name: ANGIE ANDRADE Room: [facility]#: [id number] Admission: 06/07/18 Date of : 52 Discharge: Report #: [id number] Path Case #: [id number] . Any image or images that accompany this report are payroll representative images only and should not be used to render a diagnosis. . This test was developed and its performance characteristics determined by [facility]. It has not been cleared or approved by the Food and Drug Administration (FDA). The FDA has determined that such clearance or approval is not necessary. . For inquiries, the physician may contact Lab: [phone] . A complete copy of the report is on file. . Professional services performed by [facility]. at [address], [place] [address]. Technical services performed by [facility] at [address], [place] [address]. . (AM 06/09/2018) . . 02 CPT . 918962 Specimen Comment: A courtesy copy of this report has been sent to Specimen Comment: [phone], , . Specimen Comment: Report sent to ,DR ALBERT / DR MEDEROS Specimen Comment: A duplicate report has been generated due to demographic updates. Performed at: [address], [place], [place] [address] MD Rashad Perez MD Phone: [phone] Performed at: 02 [facility] [address], [place], [place] [id number] MD Giovanny Steele MD Phone: [phone]
== END | disposition home or self-care (01) ==
LOC: CANPRECLI → M.INT 10:00
DX: D11.9 Benign neoplasm of major salivary gland, unspecified (principal); R93.5 Abnormal findings on diagnostic imaging of other abdominal regions, including retroperitoneum; Z91.040 Latex allergy status; Z88.8 Allergy status to other drugs, medicaments and biological substances

== ENCOUNTER → 2018-12-17 | Outpatient (CLI) | payer OTHER | LOC: M.ULTRA 12-15 10:30 | DX: R10.9 Unspecified abdominal pain (principal) ==

== ENCOUNTER 2019-02-01 17:47 | Emergency (ER) | payer OTHER ==
[~2019-02-01] VITALS: Ht 157.5 cm; Wt 74.8 kg
[2019-02-01 18:11] LABS: URINE BILIRUBIN NEGATIVE (Negative); URINE BLOOD NEGATIVE (Negative); URINE CLARITY CLEAR; URINE COLOR YELLOW; URINE GLUCOSE-RANDOM NEGATIVE (Negative); URINE KETONES NEGATIVE (Negative); URINE LEUKOCYTES-REFLEX TRACE (Negative); URINE NITRITE-REFLEX NEGATIVE (Negative); URINE PROTEIN NEGATIVE (Negative); URINE UROBILINOGEN 0.2 E.U./dl (0.2-1.0)
[2019-02-01 18:18] LABS: SQUAMOUS 4-10 Moderate /LPF (0-3)
[2019-02-01 18:19] LABS: URINE RBC 0-2 Rare /HPF (0-2); URINE WBC-REFLEX 6-15 Few /HPF (0-5)
[2019-02-01 18:20] LABS: CRYSTALS None Seen /LPF (None Seen); HYALINE CASTS 0-3 Few /LPF (None Seen); MUCUS 4-6 Moderate strn/LPF (None Seen)
[2019-02-01 18:43] LABS: ABSOLUTE BASOPHILS 0.1 thou/uL (0.0-0.2); ABSOLUTE EOSINOPHILS 0.1 thou/uL (0.0-0.7); ABSOLUTE LYMPHOCYTES 0.7 thou/uL (0.8-5.3); ABSOLUTE MONOCYTES 0.9 thou/uL (0.0-1.2); ABSOLUTE NEUTROPHILS 9.1 thou/uL (1.6-8.1); BASOPHILS 1.1 %; EOSINOPHILS 1.2 %; LYMPHOCYTES 6.8 %; MCH 30.9 pg (26.0-34.0); MCHC 34.9 g/dL (28.0-37.0); MCV 88.6 fL (80.0-100.0); MPV 7.6 fl. (7.2-11.1); NUCLEATED RBCS 0 /100WBC; PLATELET COUNT* 270 thou/uL (150-400); POLYS 82.9 %; RBC 5.19 mil/uL (4.20-5.00); RDW-CV 14.3 % (10.5-14.5); WBC 10.9 thou/uL (4.0-11.0)
[2019-02-01 18:51] LABS: CALCIUM 9.2 mg/dL (8.5-10.1); CREATININE 0.7 mg/dL (0.6-1.3); POTASSIUM 4.4 mmol/L (3.5-5.1)
[2019-02-01 18:55] LABS: ALBUMIN 3.7 g/dL (3.4-5.0); TOTAL BILIRUBIN 0.5 mg/dL (<0.1-1.0)
[2019-02-01] MEDS ORDERED: ZOFRAN ODT4 MG PO ×2 (20:13→20:17)
[2019-02-01] MEDS ORDERED: FLAGYL500 M1 PO (20:13)
[2019-02-01] MEDS ORDERED: NORCO 5-325 TA1 EAC1 PO (20:13)
[2019-02-01] MEDS ORDERED: CIPRO500 MG PO (20:13)
[2019-02-01 20:43] VITALS: BP 164/98
== END 2019-02-01 20:45 | disposition home or self-care (01) ==
LOC: M.ERS 17:47
PROVIDERS: Physician Assistant
DX: N39.0 Urinary tract infection, site not specified (principal); R11.2 Nausea with vomiting, unspecified; R19.7 Diarrhea, unspecified; F17.200 Nicotine dependence, unspecified, uncomplicated; Z90.49 Acquired absence of other specified parts of digestive tract; Z86.018 Personal history of other benign neoplasm; Z88.5 Allergy status to narcotic agent; Z91.040 Latex allergy status

== ENCOUNTER → 2019-09-21 | Outpatient (CLI) | payer OTHER ==
[~2019-09-21] VITALS: Ht 157.5 cm; Wt 79.4 kg
[~2019-09-21] MED LIST changes: +CIPRO500 MG PO; +FLAGYL500 M1 PO; +NORCO 5-325 TA1 EAC1 PO; +VITAMIN D-40010 MCG PO; +ZOFRAN ODT4 MG PO
[2019-09-21 07:37] VITALS: BP 151/84
[2019-09-21 07:50] LABS: HEMATOCRIT 45.1 % (37.0-47.0); HEMOGLOBIN 15.8 gm/dL (12.0-15.0); MCHC 35.1 g/dL (28.0-37.0); MCV 88.5 fL (80.0-100.0); MPV 7.9 fl. (7.2-11.1); RBC 5.1 mil/uL (4.20-5.00); RDW-CV 13.7 % (10.5-14.5); WBC 8.4 thou/uL (4.0-11.0)
[2019-09-21 07:57] LABS: CALCIUM 8.9 mg/dL (8.5-10.1); CREATININE 0.8 mg/dL (0.6-1.3); POTASSIUM 4.4 mmol/L (3.5-5.1)
[2019-09-21 07:59] LABS: APTT 24.9 Seconds (25.0-31.3); INR 0.9; PROTIME 9.6 Seconds (9.20-11.50)
[2019-09-21 08:02] LABS: ALBUMIN 3.6 g/dL (3.4-5.0); TOTAL BILIRUBIN 0.4 mg/dL (<0.1-1.0); TOTAL PROTEIN 7.1 g/dL (6.4-8.2)
== END | disposition home or self-care (01) ==
LOC: M.INT 07:04
PROVIDERS: Radiology Diagnostic Radiology
DX: Z45.2 Encounter for adjustment and management of vascular access device (principal); Z85.79 Personal history of other malignant neoplasms of lymphoid, hematopoietic and related tissues; F17.210 Nicotine dependence, cigarettes, uncomplicated; Z98.890 Other specified postprocedural states; Z79.899 Other long term (current) drug therapy; Z90.49 Acquired absence of other specified parts of digestive tract; Z98.51 Tubal ligation status; Z98.0 Intestinal bypass and anastomosis status; Z91.040 Latex allergy status; Z88.8 Allergy status to other drugs, medicaments and biological substances; Z79.01 Long term (current) use of anticoagulants

== ENCOUNTER → 2019-12-06 | Outpatient (CLI) | payer OTHER ==
--- NOTE | 2019-12-06 13:20 | EKG ---
[place] [address] ELECTROCARDIOGRAM REPORT Name: LUPEANGIE MILLIGAN Room: [facility]#: [id number] Admission: 12/06/19 Attend Phys: Rashad Elizalde Discharge: Date of : 52 Date of Service: 12/06/19 1131 Report #: [id number] THIS REPORT FOR: //name// [facility] Test Date: 2019-12-06 Test Time: 11:31:44 Pat Name: ANGIE ANDRADE Department: Room: Gender: F Application Architect: JAYESH : 1950 Requested By: Rashad Saab Order Number: [id number] Reading MD: Avery Jackson Measurements Intervals [place] Rate: 66 P: 42 [place]: 152 QRS: -15 QRSD: 88 T: 26 QT: 403 QTc: 423 Interpretive Statements Sinus rhythm Borderline left axis deviation RSR' in V1 or V2, right VCD or RVH Compared to ECG 10/19/2017 11:01:27 No significant changes Electronically Signed On 12-06-2019 13:20:17 CDT by Avery Jackson [email or web address] <ELECTRONICALLY SIGNED> By: Avery Jackson MD, FACC 12/06/19 1320 1131 1131 Avery Jackson MD, [facility] /EPI
== END ==
LOC: M.RAD 10:23
PROVIDERS: ATTEND Family Medicine
DX: I70.0 Atherosclerosis of aorta (principal); I89.8 Other specified noninfective disorders of lymphatic vessels and lymph nodes; C85.10 Unspecified B-cell lymphoma, unspecified site; J44.9 Chronic obstructive pulmonary disease, unspecified; R05 Cough; R07.89 Other chest pain